=== PATIENT | female | born 1995 | race Two or more races ===

== ENCOUNTER 2021-12-01 16:09 | Outpatient (CLI) | payer OTHER ==
[2021-12-02] MEDS ORDERED: ECOTRIN81 MG PO (15:50)
[2021-12-02] MEDS ORDERED: PRENATAL + DHA1 EAC1 PO (15:50)
== END 2021-12-01 16:30 | disposition home or self-care (01) ==
LOC: NST 16:09
PROVIDERS: ATTEND Specialist
DX: Z34.82 Encounter for supervision of other normal pregnancy, second trimester (principal)

== ENCOUNTER 2021-12-02 14:52 | Outpatient (CLI) | payer OTHER ==
[2021-12-02] MEDS ORDERED: PRENATAL + DHA1 EAC1 PO (15:50)
[2021-12-02] MEDS ORDERED: ECOTRIN81 MG PO (15:50)
== END 2021-12-03 11:28 | disposition home or self-care (01) ==
LOC: OBS/DEL 14:52
PROVIDERS: ATTEND Specialist
DX: O13.3 Gestational [pregnancy-induced] hypertension without significant proteinuria, third trimester (principal); Z3A.29 29 weeks gestation of pregnancy

== ENCOUNTER 2021-12-18 05:22 | Outpatient (CLI) | payer OTHER ==
[~2021-12-18 05:22] MED LIST: ECOTRIN81 MG PO; PRENATAL + DHA1 EAC1 PO
[2021-12-18] MEDS ORDERED: IRON236 MG PO (06:06)
== END 2021-12-18 17:33 | disposition home or self-care (01) ==
LOC: OBS/DEL 05:22
PROVIDERS: ATTEND Specialist
DX: O99.613 Diseases of the digestive system complicating pregnancy, third trimester (principal); O26.613 Liver and biliary tract disorders in pregnancy, third trimester; O99.213 Obesity complicating pregnancy, third trimester; Z3A.31 31 weeks gestation of pregnancy

== ENCOUNTER 2022-02-09 05:32 | Inpatient (IN) | payer OTHER ==
[~2022-02-09] VITALS: Ht 177.8 cm; Wt 3.6 kg
[~2022-02-09 05:32] MED LIST changes: +IRON236 MG PO
[2022-02-11] MEDS ORDERED: COLACE100 MG PO (13:35)
[2022-02-11] MEDS ORDERED: IBU800 MG PO (13:36)
[2022-02-11] MEDS ORDERED: SIMETHICONE125 M1 PO (13:36)
== END 2022-02-11 14:50 | disposition home or self-care (01) | DRG 788 ==
LOC: LDR 05:32 → OB/GYN 05:32 → LDR 05:40 → OB/GYN 19:22
PROVIDERS: ADMIT Specialist; ATTEND Specialist
PROC: 4A1HXCZ Monitoring of Products of Conception, Cardiac Rate, External Approach (ICD-10-PCS; 2022-02-09)
PROC: 10D00Z1 Extraction of Products of Conception, Low, Open Approach (ICD-10-PCS; principal; 2022-02-09 18:00)
DX: O63.0 Prolonged first stage (of labor) (principal); Z3A.38 38 weeks gestation of pregnancy; Z37.0 Single live birth; Z20.822 Contact with and (suspected) exposure to COVID-19